=== PATIENT | female | born 1965 | race Caucasian/White ===

== ENCOUNTER 2018-12-09 10:48 | Emergency (ER) | payer BC ==
[~2018-12-09] VITALS: Ht 160 cm; Wt 61.0 kg
--- NOTE | 2018-12-09 12:07 | NUR ---
FROM LOBBY TO ROOM AT THIS TIME
[2018-12-09] MEDS ORDERED: DIPHENHYDRAMINE 25 MG CAPSULE PO ONE (13:00)
[2018-12-09] MEDS ORDERED: METOCLOPRAMIDE 10MG TABLET PO ONE (13:00)
[2018-12-09] MEDS ORDERED: KETOROLAC 30 MG/1 ML IM ONE (13:00)
[2018-12-09 13:01] LABS: BASOPHILS # (AUTO) 0.02 x10^3/uL (0-0.1); BASOPHILS % (AUTO) 0 % (0-1); EOSINOPHILS # (AUTO) 0.07 x10^3/uL (0-0.4); EOSINOPHILS % (AUTO) 1 % (1-7); LYMPHOCYTES # (AUTO) 1.83 x10^3/uL (1-3.4); LYMPHOCYTES % (AUTO) 23 % (22-44); MD NO; MEAN CORPUSCULAR HEMOGLOBIN 31.6 pg (27.0-34.8); MEAN CORPUSCULAR HGB CONC 32.7 g/dL (32.4-35.8); MEAN CORPUSCULAR VOLUME 96.5 fL (80-100); MEAN PLATELET VOLUME 7.9 fL (7.4-10.4); MONOCYTES # (AUTO) 0.18 x10^3/uL (0.2-0.8); MONOCYTES % (AUTO) 2 % (2-9); NEUTROPHILS % (AUTO) 73 % (42-75); PLATELET COUNT 258 x10^3/uL (130-400); RED BLOOD COUNT 4.93 x10^6/uL (3.82-5.3); RED CELL DISTRIBUTION WIDTH 13.3 % (9.6-15.2)
[2018-12-09] MEDS ORDERED: KETOROLAC 30 MG/1 ML ONE (13:05)
[2018-12-09] MEDS ORDERED: METOCLOPRAMIDE 10MG TABLET ONE (13:05)
[2018-12-09] MEDS ORDERED: DIPHENHYDRAMINE 25 MG CAPSULE ONE (13:05)
[2018-12-09 13:11] LABS: ALBUMIN 4.4 g/dL (3.4-5.0); ANION GAP 5 mmol/L (5-15); CALCIUM 9.9 mg/dL (8.5-10.1); CHLORIDE 106 mmol/L (98-107); CREATININE 0.89 mg/dL (0.55-1.02); HCT (SEDRATE) 47.6 % (34.6-47.8)
--- NOTE | 2018-12-09 13:15 | NUR ---
TASK RN: FIRST CONTACT WITH PT. Pt resting on gurney with lights out. NADN. Provided pt medication per [facility]AR. Pt has NIBP cuff on and pulse ox monitor on. Both bedrails up for safety measures. Call light within reach. Pt denies n/v/d, sob, cp, or trauma. Pt states, "it has eased up a little, it's not pouding with my heart beat anymore." No other needs requested at this time.
--- NOTE | 2018-12-09 13:43 | NUR ---
PT RESTING ON GURNEY. STATES RELIEF OF PAIN FROM MEDS GIVEN. AWAITING LAB RESULTS. ALL CONCERNS ADRESSED.
--- NOTE | 2018-12-09 14:40 | NUR ---
PT IN MRI
[2018-12-09 15:54] VITALS: BP 138/67
--- NOTE | 2018-12-09 16:06 | NUR ---
Patient/Caregiver given discharge instructions and they have confirmed that they understand the instructions. Patient ambulatory with steady gait. PT LEFT WITH ALL PERSONAL BELONGINGS.
== END 2018-12-09 16:19 | disposition home or self-care (01) ==
LOC: ED 13:33
DX: R51 Headache (principal); E78.5 Hyperlipidemia, unspecified; Z87.891 Personal history of nicotine dependence
CPT/HCPCS: 36415; 70450; 70553; 80048; 82040; 85025; 85651; 96372; 99284; J1885; Q0163